=== PATIENT | female | born 1995 | race Two or more races ===

== ENCOUNTER 2017-05-07 15:18 | Emergency (ER) | payer OTHER ==
[2017-05-07 17:05] LABS: INFLUENZA A AMPLIFICATION NEGATIVE (NEGATIVE); INFLUENZA B AMPLIFICATION NEGATIVE (NEGATIVE)
[2017-05-07] MEDS: ACETAMINOPHEN 325 MG TAB PO (17:12)
[2017-05-07 17:52] LABS: AMORPHOUS SEDIMENT RFX SMALL (NEGATIVE); KETONE, URINE AUTO RFX 1+ mg/dL (NEGATIVE); LEUKOCYTE ESTERASE UR AUTO RFX NEGATIVE (NEGATIVE); MUCUS, URINE RFX SMALL (NEGATIVE); NITRITE, URINE AUTO RFX NEGATIVE (NEGATIVE); RBC, URINE AUTO RFX 2 /HPF (0-3); SPECIFIC GRAVITY UR AUTO RFX 1.008 (1.002-1.035); SQUAM EPITHELIAL CELL UR AURFX 2 /HPF (0-6); WBC, URINE AUTO RFX 1 /HPF (0-3)
== END 2017-05-07 18:10 | disposition home or self-care (01) ==
LOC: M ED 15:18
DX: O98.513 Other viral diseases complicating pregnancy, third trimester (principal); B34.9 Viral infection, unspecified; Z3A.29 29 weeks gestation of pregnancy
CPT/HCPCS: 81001

== ENCOUNTER 2017-07-27 15:48 | Inpatient (IN) | payer OTHER ==
[2017-07-27] MEDS: miSOPROStol 50 MCG 1/2 TAB (S0191) SL (17:21)
[2017-07-27 17:25] LABS: HEMATOCRIT 34.9 % (36.0-47.0); HEMOGLOBIN 12.5 g/dl (12.0-15.5); MEAN CORPUSCULAR HEMOGLOBIN 32.2 pg (27.0-33.0); MEAN CORPUSCULAR HGB CONC 35.8 g/dl (32.0-36.5); MEAN CORPUSCULAR VOLUME 89.9 fl (80.0-96.0); PLATELET COUNT, AUTOMATED 183 10^3/uL (150-450); RED BLOOD COUNT 3.88 10^6/uL (4.00-5.40); RED CELL DISTRIBUTION WIDTH 13.2 % (11.5-14.5)
[2017-07-27 17:57] LABS: TOTAL PROTEIN,RANDOM URINE 13.1 MG/DL (0.0-12.0)
[2017-07-27 18:03] LABS: ALT/SGPT 19 U/L (12-78); AST/SGOT 23 U/L (7-37); BILIRUBIN,TOTAL 0.5 MG/DL (0.2-1.0); CREATININE FOR GFR 0.48 MG/DL (0.55-1.30); LDH LACTATE DEHYDROGENASE 177 U/L (84-246); URIC ACID 5.7 MG/DL (2.6-6.0)
[2017-07-27] MEDS: LR 1,000 ML IV (21:45)
[2017-07-27] MEDS: OXYTOCIN DRIP 30 UNITS in APPROPRIATE DILUENT 1 EA IV (21:46)
[2017-07-28] MEDS: LR 1,000 ML IV ×3 (01:30→21:22)
[2017-07-28] MEDS: PROMETHAZINE INJ 25 MG/ML VIAL (J2550) IV (02:43)
[2017-07-28] MEDS: NALBUPHINE HCL 10 MG/ML AMP (J2300) IV (02:43)
[2017-07-28] MEDS ORDERED: ONDANSETRON 4MG/2ML VIAL (J2405) As Ordered (07:36)
[2017-07-28] MEDS: ONDANSETRON 4MG/2ML VIAL (J2405) IV (07:38)
[2017-07-28] MEDS ORDERED: FENTANYL 2MCG/ML ROPIVACAINE 0.2% IN 0.9% NACL 200ML IVBAG As Ordered (08:21)
[2017-07-28] MEDS ORDERED: NALOXONE INJ 0.4 MG/1 ML VIAL (J2310) IV (10:30)
[2017-07-28] MEDS ORDERED: diphenhydrAMINE INJ 50MG/ML VIAL (J1200) IV (10:30)
[2017-07-28] MEDS ORDERED: REFRIGERATOR IV KEYS XX (10:30)
[2017-07-28] MEDS: FENTANYL/ROPIVACAINE/NACL BAG 200 ML EPIDURAL (10:30)
[2017-07-28] MEDS ORDERED: EPIDURAL COMMENT XX (10:30)
[2017-07-28] MEDS ORDERED: EPIDURAL/PCA KEYS XX (10:30)
[2017-07-28] MEDS ORDERED: ePHEDrine SULFATE 25 MG/5 ML(5MG/ML) SYRINGE IV (10:30)
[2017-07-28] MEDS ORDERED: ONDANSETRON 4MG/2ML VIAL (J2405) IV (10:30)
[2017-07-28] MEDS ORDERED: LACTATED RINGER'S 1000 ML IV (10:30)
[2017-07-28] MEDS: OXYTOCIN DRIP 30 UNITS in APPROPRIATE DILUENT 1 EA IV (17:44)
[2017-07-28] MEDS ORDERED: DIBUCAINE 1% OINTMENT 30GM TOP (17:45)
[2017-07-28] MEDS ORDERED: RHOGAM 300 MCG (1500 IU) INJ (J2790) IM (17:45)
[2017-07-28] MEDS ORDERED: MEASLES,MUMPS,RUBELLA VACCINE INJ (MMR-II) (90707) SC (17:45)
[2017-07-28] MEDS ORDERED: DOCUSATE SODIUM 100 MG CAP PO (17:45)
[2017-07-28] MEDS: IBUPROFEN 800 MG TAB PO (22:34)
[2017-07-29] MEDS: ACETAMINOPHEN 500 MG TAB PO (05:16)
[2017-07-29] MEDS: LR 1,000 ML IV (05:22)
[2017-07-29] MEDS: IBUPROFEN 800 MG TAB PO (07:44)
[2017-07-29] MEDS: PRENATAL VITAMINS CHEWABLE TABLET PO (07:44)
[2017-07-30] MEDS: PRENATAL VITAMINS CHEWABLE TABLET PO (09:01)
== END 2017-07-30 12:15 | disposition home or self-care (01) | DRG 775 ==
LOC: M LDI 15:48 → M OBS 07-28 19:41
PROC: 3E0P7GC Introduction of Other Therapeutic Substance into Female Reproductive, Via Natural or Artificial Opening (ICD-10-PCS; 2017-07-27)
PROC: 10E0XZZ Delivery of Products of Conception, External Approach (ICD-10-PCS; principal; 2017-07-28)
PROC: 0HQ9XZZ Repair Perineum Skin, External Approach (ICD-10-PCS; 2017-07-28)
PROC: 10907ZC Drainage of Amniotic Fluid, Therapeutic from Products of Conception, Via Natural or Artificial Opening (ICD-10-PCS; 2017-07-28)
DX: O41.03X0 Oligohydramnios, third trimester, not applicable or unspecified (principal); O48.0 Post-term pregnancy; Z3A.40 40 weeks gestation of pregnancy; O69.81X0 Labor and delivery complicated by cord around neck, without compression, not applicable or unspecified; O32.6XX0 Maternal care for compound presentation, not applicable or unspecified; O70.0 First degree perineal laceration during delivery; Z37.0 Single live birth

== ENCOUNTER 2017-11-10 13:51 | Emergency (ER) | payer OTHER ==
[2017-11-10 14:27] LABS: BASO % 0.2 % (0.0-1.0); EOS # 0.1 10^3/uL (0.0-0.50); EOS % 1.9 % (0.0-3.0); HEMATOCRIT 44.1 % (36.0-47.0); HEMOGLOBIN 15.2 g/dl (12.0-15.5); IMMATURE GRANULOCYTE % 0.2 % (0-3.0); LYMPH # 1.3 10^3/uL (1.5-6.5); LYMPH % 23.6 % (24.0-44.0); MEAN CORPUSCULAR HEMOGLOBIN 30.3 pg (27.0-33.0); MEAN CORPUSCULAR HGB CONC 34.5 g/dl (32.0-36.5); MEAN CORPUSCULAR VOLUME 87.8 fl (80.0-96.0); MONO # 0.5 10^3/uL (0.0-0.8); MONO % 8.5 % (0.0-5.0); NEUTROPHILS # 3.7 10^3/uL (1.8-7.7); NEUTROPHILS % 65.6 % (36.0-66.0); PLATELET COUNT, AUTOMATED 265 10^3/uL (150-450); RED BLOOD COUNT 5.02 10^6/uL (4.00-5.40); RED CELL DISTRIBUTION WIDTH 11.7 % (11.5-14.5); WHITE BLOOD COUNT 5.7 10^3/uL (4.0-10.0)
[2017-11-10 14:52] LABS: KETONE, URINE AUTO RFX TRACE mg/dL (NEGATIVE); LEUKOCYTE ESTERASE UR AUTO RFX NEGATIVE (NEGATIVE); MUCUS, URINE RFX SMALL (NEGATIVE); NITRITE, URINE AUTO RFX NEGATIVE (NEGATIVE); RBC, URINE AUTO RFX 2 /HPF (0-3); SQUAM EPITHELIAL CELL UR AURFX 5 /HPF (0-6)
[2017-11-10 14:53] LABS: ANION GAP 6 MEQ/L (8-16); BLOOD UREA NITROGEN 14 MG/DL (7-18); CALCIUM LEVEL 9.4 MG/DL (8.5-10.1); CARBON DIOXIDE LEVEL 28 MEQ/L (21-32); CHLORIDE LEVEL 110 MEQ/L (98-107); CREATININE FOR GFR 0.69 MG/DL (0.55-1.30); GLUCOSE, FASTING 85 MG/DL (70-100); POTASSIUM SERUM 4.3 MEQ/L (3.5-5.1); SODIUM LEVEL 144 MEQ/L (136-145)
[2017-11-10 14:55] LABS: WBC, URINE AUTO RFX 12 /HPF (0-3)
[2017-11-10 16:15] LABS: CONTROL LINE UCG INT CTR LINE PRESENT; URINE PREG TEST NEGATIVE (NEGATIVE)
== END 2017-11-10 16:27 | disposition home or self-care (01) ==
LOC: M ED 13:51
DX: N39.0 Urinary tract infection, site not specified (principal); J45.909 Unspecified asthma, uncomplicated; Z87.440 Personal history of urinary (tract) infections; Z91.040 Latex allergy status
CPT/HCPCS: 84703

== ENCOUNTER 2018-08-07 17:24 | Emergency (ER) | payer OTHER ==
[~2018-08-07] VITALS: Ht 167.6 cm; Wt 56.8 kg
[~2018-08-07 17:24] MED LIST: COLA100C5 PO; CROM100C PO; DIBU1OIN TOP; DIPH12.527 PO; MACR100C43 PO; MAPA500T2 PO; MOTR200T44 PO; PRE-TAB3 PO; PRENTAB55 PO; RANI15TA PO; SING4CHW9 PO; TYLE500T78 PO; ZYRT10CA PO
--- NOTE | 2018-08-07 19:15 | REP ---
Chest two views HISTORY: Shortness of breath Comparison: None The lungs are clear. The heart is normal in size. The pulmonary vasculature is normal in appearance. The bony structure is intact. IMPRESSION: No acute disease. Electronically Signed by London Torres MD 08/07/2018 07:08 P
[2018-08-07] MEDS ORDERED: ALBUTEROL SULFATE 2.5 MG/0.5 ML INH NEB SOLN NEB ONE (20:00)
[2018-08-07 20:57] VITALS: BP 95/62
[2018-08-07] MEDS ORDERED: VENTAER INH (21:05)
[2018-08-07] MEDS ORDERED: ALBUTEROL 90 MCG/ACT 8GM HFA INHALER INH ONE (21:15)
== END 2018-08-07 21:13 | disposition home or self-care (01) ==
LOC: M ED 17:24
DX: J45.901 Unspecified asthma with (acute) exacerbation (principal); Z86.14 Personal history of Methicillin resistant Staphylococcus aureus infection; Z87.891 Personal history of nicotine dependence